=== PATIENT | male | born 1960 | race Caucasian/White ===

== ENCOUNTER 2024-11-03 19:12 | Emergency (ER) | payer BC ==
[2024-11-03] MEDS: Bacitracin Oint 1 GM U/D Packet TOP ONE (19:35)
[2024-11-03] MEDS: Lidocaine 1% 5 ML VIAL INJECT ONE (19:35)
== END 2024-11-03 19:53 | disposition home or self-care (01) ==
LOC: DL.ED 19:12
DX: S60.352A Superficial foreign body of left thumb, initial encounter (principal); W45.8XXA Other foreign body or object entering through skin, initial encounter
CPT/HCPCS: 99282; 99283; A9270-GY; J2003